=== PATIENT | male | born 1975 | race Hispanic/Latino ===

== ENCOUNTER 2016-07-12 03:51 | Emergency (ER) | payer MEDICAID ==
[2016-07-12 05:07] VITALS: BP 127/67
== END 2016-07-12 06:30 | disposition left against medical advice (07) ==
LOC: ED 03:51
DX: R69 Illness, unspecified (principal); Z53.21 Procedure and treatment not carried out due to patient leaving prior to being seen by health care provider

== ENCOUNTER 2018-08-03 00:12 | Emergency (ER) | payer MEDICAID ==
[2018-08-03 00:35] VITALS: BP 142/46
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
== END 2018-08-03 02:50 | disposition home or self-care (01) ==
LOC: ED 00:12
DX: S09.90XA Unspecified injury of head, initial encounter (principal); F31.9 Bipolar disorder, unspecified; F20.9 Schizophrenia, unspecified; Y04.0XXA Assault by unarmed brawl or fight, initial encounter; Y93.89 Activity, other specified; Y92.89 Other specified places as the place of occurrence of the external cause; Y99.8 Other external cause status
CPT/HCPCS: 70450

== ENCOUNTER 2018-12-06 16:48 | Emergency (ER) | payer MEDICAID ==
[2018-12-06 17:16] VITALS: BP 124/64
[2018-12-06] MEDS ORDERED: BOOSTRIX IM ONE (17:17)
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
== END 2018-12-06 19:32 | disposition left against medical advice (07) ==
LOC: ED 16:48
DX: R51 Headache (principal); Z53.21 Procedure and treatment not carried out due to patient leaving prior to being seen by health care provider